=== PATIENT | male | born 1965 | race Two or more races ===

== ENCOUNTER → 2022-03-02 | Outpatient (CLI) | payer OTHER ==
--- NOTE | 2022-03-02 11:37 | KCIC ---
XR SHOULDER_LEFT 2+ VIEWS 03/02/2022 11:03 AM INDICATION: Left shoulder contusion, pain status post fall COMPARISON: None available. TECHNIQUE: 3 views of the left shoulder are provided. FINDINGS/ IMPRESSION: There is no acute fracture or dislocation. Mild acromioclavicular osteoarthrosis with joint space jessica rowing and superiorly projecting osteophyte. Bone mineralization is within normal limits. Regional so ft tissues are within normal limits. There is no soft tissue gas or osseous erosion. No radiopaque fo reign body. Electronically signed by: Jackelyn Chapin MD (03/02/2022 11:35 AM) [id number]
== END ==
LOC: KCIC 10:51
DX: S40.012S Contusion of left shoulder, sequela (principal); M19.012 Primary osteoarthritis, left shoulder; M25.712 Osteophyte, left shoulder; M25.812 Other specified joint disorders, left shoulder; W19.XXXS Unspecified fall, sequela
CPT/HCPCS: 73030